=== PATIENT | male | born 1995 | race African-American/Black ===

== ENCOUNTER 2020-09-01 21:29 | Emergency (ER) | payer MEDICAID ==
[~2020-09-01] VITALS: Ht 170.2 cm; Wt 93.0 kg
[2020-09-01 21:33] VITALS: BP 161/100
--- NOTE | 2020-09-01 21:33 | NUR ---
TO BED AMBULATORY
--- NOTE | 2020-09-01 21:40 | NUR ---
24/M BIB SELF COMPLAINING OF ACHING LOWER BACK 8/10 RADIATING TO HIS LEFT AND RIGHT RIB. PT DENIES ANY RECENT TRAUMA OR EXTRENOUS ACTIVITY. PT DENIES ANY FEVER, CHILLS, N/V/D, PAINFUL URINATION. PMH: UNABLE TO REMEMBER NKA
[2020-09-01] MEDS ORDERED: MORPHINE SULFATE 4 MG/ML SYR IVP ONE (23:05)
[2020-09-01] MEDS ORDERED: PANTOPRAZOLE 40 MG INJ VIAL IVP ONE (23:05)
[2020-09-01] MEDS ORDERED: NACL 0.9% 1,000 ML IV ONE (23:05)
[2020-09-01 23:29] LABS: BASOPHILS % (AUTO) 0.3 % (0.0-2.0); EOSINOPHILS # (AUTO) 0.7 K/uL (0-0.4); EOSINOPHILS % (AUTO) 5.2 % (0.0-4.0); HEMATOCRIT 35.7 % (36-52); HEMOGLOBIN 11.3 g/dL (12.0-18.0); LYMPHOCYTES # (AUTO) 2.7 K/uL (2.0-11.5); LYMPHOCYTES % (AUTO) 19.1 % (20.5-51.1); MEAN CORPUSCULAR HEMOGLOBIN 23 pg (27-31); MEAN CORPUSCULAR HGB CONC 32 g/dL (33-37); MEAN CORPUSCULAR VOLUME 71.6 fL (80-94); MONOCYTES # (AUTO) 1.4 K/uL (0.8-1.0); MONOCYTES % (AUTO) 9.9 % (1.7-9.3); NEUTROPHILS # (AUTO) 9.2 K/uL (1.8-7.7); NEUTROPHILS % (AUTO) 65.5 % (42.2-75.2); PLATELET COUNT (AUTO) 278 K/uL (140-450); RED BLOOD CELL COUNT(AUTO) 4.99 MIL/uL (4.20-6.10)
[2020-09-01] MEDS: ONDANSETRON 4 MG/2 ML VIAL IVP ONE (23:37)
--- NOTE | 2020-09-01 23:37 | NUR ---
PT REFUSED ZOFRAN. MEDICATION ALREADY OPENED. MEDICATION WASTED.
[2020-09-01 23:45] LABS: ALBUMIN 3.7 g/dL (3.4-5.0); ANION GAP 10.5 (8-16); CARBON DIOXIDE 28.8 mmol/L (21-32); CREATININE 1.1 mg/dL (0.6-1.3); POTASSIUM 3.3 mmol/L (3.5-5.1); TOTAL BILIRUBIN 0.2 mg/dL (0.0-1.0)
--- NOTE | 2020-09-01 23:47 | NUR ---
PT TAKEN TO CT
--- NOTE | 2020-09-01 23:58 | NUR ---
PT RETURN FROM CT
[2020-09-02] MEDS: ONDANSETRON 4 MG/2 ML VIAL IVP ONE (00:02)
--- NOTE | 2020-09-02 00:43 | NUR ---
URINE SPECIMEN SENT TO [facility] (LAB)
[2020-09-02 00:50] LABS: APPEARANCE,URINE CLEAR (CLEAR); BILIRUBIN,URINE NEGATIVE (NEGATIVE); BLOOD, URINE NEGATIVE (NEGATIVE); COLOR,URINE YELLOW (YELLOW); LEUKOCYTE ESTERASE ,URINE NEGATIVE (NEGATIVE); NITRITE, URINE NEGATIVE (NEGATIVE); PH,URINE 5.5 (5.0-9.0); UGLUCOSE NEGATIVE (NEGATIVE)
[2020-09-02] MEDS ORDERED: FAMO-92 PO (03:36)
[2020-09-02 03:43] VITALS: BP 117/78
== END 2020-09-02 03:43 | disposition home or self-care (01) ==
LOC: MED 21:29
DX: K27.9 Peptic ulcer, site unspecified, unspecified as acute or chronic, without hemorrhage or perforation (principal)
CPT/HCPCS: 36415; 72131; 74176; 80053; 81003; 82150; 83690; 85025; 96361; 96374; 96375; 99285; C9113; J2270; J7030; J2405

== ENCOUNTER 2020-09-04 16:16 | Inpatient (IN) | payer MEDICAID, SELFPAY ==
[~2020-09-04] VITALS: Ht 170.2 cm; Wt 89.8 kg
[~2020-09-04 16:16] MED LIST: FAMO-92 PO
[2020-09-04 16:20] VITALS: BP 137/97
--- NOTE | 2020-09-04 16:22 | NUR ---
c/o bilateral flank pain x few days. states he was seen here a few days ago for abd pain and dx peptic ulcers hx ulcerative colitis
--- NOTE | 2020-09-04 16:22 | NUR ---
Patient ambulated to bed 11. RN evaluating the patient at bedside.
--- NOTE | 2020-09-04 17:10 | NUR ---
Dr. Abarca at the bedside evaluating patient.
[2020-09-04] MEDS ORDERED: MORPHINE SULFATE 4 MG/ML SYR IVP ONE (17:20)
[2020-09-04] MEDS ORDERED: ONDANSETRON 4 MG/2 ML VIAL IVP ONE (17:20)
[2020-09-04] MEDS ORDERED: NACL 0.9% 1,000 ML IV ONE (17:20)
--- NOTE | 2020-09-04 17:47 | NUR ---
patient taken to CT via wheelchair by dish technician
[2020-09-04 17:52] LABS: BASOPHILS # (AUTO) 0.1 K/uL (0.00-0.22); BASOPHILS % (AUTO) 0.5 % (0.0-2.0); EOSINOPHILS # (AUTO) 1.3 K/uL (0-0.4); EOSINOPHILS % (AUTO) 7.6 % (0.0-4.0); HEMATOCRIT 37.3 % (36-52); HEMOGLOBIN 11.5 g/dL (12.0-18.0); LYMPHOCYTES # (AUTO) 2.1 K/uL (2.0-11.5); LYMPHOCYTES % (AUTO) 12.8 % (20.5-51.1); MEAN CORPUSCULAR HEMOGLOBIN 22 pg (27-31); MEAN CORPUSCULAR HGB CONC 31 g/dL (33-37); MEAN CORPUSCULAR VOLUME 71.6 fL (80-94); MONOCYTES # (AUTO) 1.4 K/uL (0.8-1.0); MONOCYTES % (AUTO) 8.8 % (1.7-9.3); NEUTROPHILS # (AUTO) 11.5 K/uL (1.8-7.7); NEUTROPHILS % (AUTO) 70.3 % (42.2-75.2); PLATELET COUNT (AUTO) 272 K/uL (140-450); RED CELL DISTRIBUTION WIDTH 18.1 % (11.6-13.7); WHITE BLOOD COUNT (AUTO) 16.4 K/uL (4.8-10.8)
--- NOTE | 2020-09-04 18:00 | NUR ---
PT RETURNED FROM CT AND PLACED IN BED 11. PT CONNECTED TO IV FLUIDS. WARM BLANKETS PROVIDED. PT PLACED IN POSITION OF COMFORT. LIGHTS DIMMED IN ROOM. CALL LIGHT LEFT WITHIN REACHED AND EDUCATED HOW TO USE. ALL NEEDS ADDRESSED PRIOR TO EXITING ROOM.
[2020-09-04 18:01] LABS: APPEARANCE,URINE CLEAR (CLEAR); BILIRUBIN,URINE 1+ (NEGATIVE); BLOOD, URINE TRACE-I (NEGATIVE); COLOR,URINE YELLOW (YELLOW); LEUKOCYTE ESTERASE ,URINE NEGATIVE (NEGATIVE); NITRITE, URINE NEGATIVE (NEGATIVE); PH,URINE 5.5 (5.0-9.0); UGLUCOSE NEGATIVE (NEGATIVE)
[2020-09-04] MEDS ORDERED: CYCL-711 PO (18:02)
[2020-09-04 18:04] LABS: ALBUMIN 3.9 g/dL (3.4-5.0); ANION GAP 13.8 (8-16); CARBON DIOXIDE 27.9 mmol/L (21-32); CREATININE 1.2 mg/dL (0.6-1.3); POTASSIUM 3.7 mmol/L (3.5-5.1); TOTAL BILIRUBIN 0.5 mg/dL (0.0-1.0)
[2020-09-04 18:10] LABS: BARBITURATE, URINE NEGATIVE ng/ml (NEG <=200); BENZODIAZEPINE, URINE NEGATIVE ng/mL (NEG <=200); CANNABINOID, URINE NEGATIVE ng/mL (NEG <=50); COCAINE, URINE NEGATIVE ng/mL (NEG <=300); OPIATE, URINE POSITIVE ng/mL (NEG <=2000); PHENCYCLIDINE SCREEN,URINE NEGATIVE ng/mL (NEG <=25)
[2020-09-04] MEDS ORDERED: KETOROLAC 30 MG/ML VIAL IVP ONE (18:20)
[2020-09-04] MEDS ORDERED: fentaNYL citrate 0.05 MG/ML VIAL IVP ONE (18:20)
--- NOTE | 2020-09-04 18:30 | NUR ---
Patient refused Toradol and Fentanyl medications; Dr. Abarca notified and aware.
--- NOTE | 2020-09-04 18:45 | NUR ---
Patient refused additional morphine dose; Dr. Abarca notified and aware.
[2020-09-04] MEDS ORDERED: metroNIDAZOLE 500 MG/NS PREMIX 100 ML IV ONE (18:55)
--- NOTE | 2020-09-04 18:58 | NUR ---
Rama specimen collected. Specimen taken to the lab by DOC Diego
--- NOTE | 2020-09-04 19:10 | NUR ---
Report given to LEON Rizzo.
--- NOTE | 2020-09-04 19:25 | NUR ---
Received report from Rosa QUINTERO for continuity of care.
--- NOTE | 2020-09-04 19:53 | NUR ---
RECEIVED REPORT FROM ER NURSE MAXINE. PATIENT AOX4 ON ROOM AIR. IV SITE L HAND 22G PATENT INTACT, INFUSING FLAGYL. AMBULATORY. JR NEGATIVE. DX: COLITIS, SIRS. HX: ULCERATIVE COLITIS. WILL GET THE ROOM READY
--- NOTE | 2020-09-04 19:54 | NUR ---
Patient will be admitted to care of Dr. Alvarenga. Admited to [facility]. Will go to room 105A. Belongings list completed. Report given to Freddy QUINTERO.
[2020-09-04 20:15] VITALS: BP 128/86
--- NOTE | 2020-09-04 20:15 | NUR ---
PATIENT ARRIVED TO UNIT. ON MEDSURG. PATIENT AOX4 ON ROOM AIR. NO S/S RESPIRATORY DISTRESS. LUNGS CLEAR. BOWEL SOUNDS ACTIVE. IV SITE L HAND 22G PATEN INTACT INFUSING FLAGYL. SKIN WARM DRY INTACT. NOTIFIED PATIENT NPO EXCEPT MEDS STATUS. ORIENTED TO ROOM AND HOSPITAL. BED IN LOW POSITION. CALL LIGHT WITHIN REACH. WILL CONTINUE TO MONITOR
[2020-09-04] MEDS: DEXT 5% / NACL 0.9% 500 ML IV SCH (21:40)
--- NOTE | 2020-09-04 21:40 | NUR ---
IVF GIVEN ORDERED. EDUCATION PROVIDED. NO S/S ACUTE DISTRESS NOTED. WILL CONTINUE TO MONITOR
[2020-09-04] MEDS ORDERED: HYDROcodone/APAP 10/325 MG 1 TAB TAB PO PRN (21:45)
[2020-09-04] MEDS ORDERED: MORPHINE SULFATE 2 MG/ML SYR IVP SCH (21:45)
--- NOTE | 2020-09-04 21:57 | NUR ---
PATIENT C/O 710 PAIN TO STOMACH AND BACK. MD AWARE. NEW ORDERS RECEIVED. WILL CARRY OUT
--- NOTE | 2020-09-04 22:08 | NUR ---
MORPHINE GIVEN ORDERED FOR C/O STOMACH AND BACK PAIN. EDUCATION PROVIDED. SAFETY MEASURES IN PLACE. CALL LIGHT WITHIN REACH. WILL CONTINUE TO MONITOR
[2020-09-04] MEDS ORDERED: ZOLPIDEM 5 MG TAB PO PRN (22:50)
[2020-09-04] MEDS ORDERED: HYDROcodone/APAP 7.5/325 MG 1 TAB PO PRN (22:50)
[2020-09-04] MEDS ORDERED: POTASSIUM CHLORIDE 40 MEQ, LIDOCAINE MPF 1% 25 MG in NACL 0.9% 250 ML IV PRN (22:50)
[2020-09-04] MEDS ORDERED: ONDANSETRON 4 MG/2 ML VIAL IM/IVP PRN (22:50)
[2020-09-04] MEDS ORDERED: ACETAMINOPHEN 325 MG TAB PO PRN (22:50)
[2020-09-04] MEDS ORDERED: guaiFENesin DM 200/20 MG-10 ML 10 ML UDC PO PRN (22:50)
[2020-09-04] MEDS ORDERED: DOCUSATE SODIUM 100 MG GELCAP PO PRN (22:50)
[2020-09-04] MEDS ORDERED: methylPREDNISolone SS 125 MG/2 ML VIAL IVP SCH (22:55)
[2020-09-04 23:36] LABS: PROTHROMBIN TIME 11.1 secs (10.8-13.4)
[2020-09-04 23:37] LABS: CHOL/HDL RATIO 4.5 (1-4.5); FREE T4 (FREE THYROXINE) 1.05 ng/dL (0.76-1.46); MAGNESIUM 2.3 mg/dL (1.8-2.4); PHOSPHORUS 3.7 mg/dL (2.5-4.9); THYROID STIMULATING HORMONE 2.02 uIU/mL (0.34-3.74)
[2020-09-05] MEDS ORDERED: metroNIDAZOLE 500 MG/NS PREMIX 100 ML IV ONE (00:05)
--- NOTE | 2020-09-05 00:18 | NUR ---
IV FLAGYL AND SOLUMEDROL GIVEN ORDERED. EDUCATION PROVIDED. NO DISTRESS NOTED. CALL LIGHT WITHIN REACH. WILL CONTINUE TO MONITOR
[2020-09-05] MEDS: DEXT 5% / NACL 0.9% 500 ML IV SCH ×6 (00:49→20:17)
--- NOTE | 2020-09-05 01:52 | NUR ---
PATIENT ASLEEP IN BED. RESPIRATIONS EVEN UNLABORED. NO S/S ACUTE DISTRESS NOTED. BED IN LOW POSITION. CALL LIGHT WITHIN REACH. WILL CONTINUE TO MONITOR
--- NOTE | 2020-09-05 03:48 | NUR ---
PATIENT ASLEEP IN BED. RESPIRATIONS EVEN UNLABORED. NO S/S ACUTE DISTRESS NOTED. BED IN LOW POSITION. CALL LIGHT WITHIN REACH. WILL CONTINUE TO MONITOR
[2020-09-05 04:00] VITALS: BP 118/78
[2020-09-05] MEDS: metroNIDAZOLE 500 MG/NS PREMIX 100 ML IV SCH ×3 (05:31→20:10)
--- NOTE | 2020-09-05 05:33 | NUR ---
SCHEDULED MEDICATION GIVEN. NO DISTRESS NOTED. DENIES DISCOMFORT. DENIES PAIN. CALL LIGHT WITHIN REACH. WILL CONTINUE TO MONITOR
[2020-09-05 06:43] LABS: EOSINOPHILS # (AUTO) 0.1 K/uL (0-0.4); EOSINOPHILS % (AUTO) 0.6 % (0.0-4.0); HEMATOCRIT 34.2 % (36-52); HEMOGLOBIN 10.5 g/dL (12.0-18.0); LYMPHOCYTES # (AUTO) 0.6 K/uL (2.0-11.5); LYMPHOCYTES % (AUTO) 3.8 % (20.5-51.1); MEAN CORPUSCULAR HEMOGLOBIN 22 pg (27-31); MEAN CORPUSCULAR HGB CONC 31 g/dL (33-37); MEAN CORPUSCULAR VOLUME 72.8 fL (80-94); MONOCYTES # (AUTO) 0.2 K/uL (0.8-1.0); MONOCYTES % (AUTO) 1.1 % (1.7-9.3); NEUTROPHILS # (AUTO) 13.9 K/uL (1.8-7.7); NEUTROPHILS % (AUTO) 94.5 % (42.2-75.2); PLATELET COUNT (AUTO) 256 K/uL (140-450); RED CELL DISTRIBUTION WIDTH 18.6 % (11.6-13.7); WHITE BLOOD COUNT (AUTO) 14.7 K/uL (4.8-10.8)
[2020-09-05 07:13] LABS: ANION GAP 14.1 (8-16); POTASSIUM 4.1 mmol/L (3.5-5.1)
--- NOTE | 2020-09-05 07:25 | NUR ---
ENDORSED PATIENT TO DAY RN FOR CONTINUITY OF CARE. PATIENT IS IN STABLE CONDITION
--- NOTE | 2020-09-05 07:30 | NUR ---
RECEIVED BEDSIDE ENDORSEMENT FROM NIGHTSNDFT NURSE FOR CONTINUITY OF CARE.
[2020-09-05 08:00] VITALS: BP 119/66
[2020-09-05] MEDS: PANTOPRAZOLE 40 MG TABEC PO SCH (08:43)
--- NOTE | 2020-09-05 08:49 | NUR ---
ADMINISTERED PRESCRIBED MEDS ORDERED BY MD. PATIENT TOLERATED WELL. MEDICATION EDUCATION PROVIDED. PATIENT VERBALIZED UNDERSTANDING. MD AT BEDSIDE. PATIENT DENIES PAIN AT THE MOMENT. SAFETY MEASURES IN PLACE. WILL CONTINUE TO MONITOR.
--- NOTE | 2020-09-05 08:56 | NUR ---
FNS REFERRAL RECEIVED FOR REFUSAL TO EAT >3 DAYS. PATIENT HAS BEEN SCREENED AND CATEGORIZED HIGH NUTRITION RISK. PATIENT WILL BE SEEN WITHIN 1-2 DAYS OF ADMISSION. 09/05/20-09/06/[address]
--- NOTE | 2020-09-05 09:04 | NUR ---
DC PLANNIN YRS OLD MALE PATIENT WAS ADMITTED FROM HOME WITH A DX OF COLITIS, SIRS. PT HAS A HX OF ULCERATIVE COLITIS AND PEPCID ULCER. CXR SHOWED BIBASAL ATELECTASIS, RAPID COVID TEST NEGATIVE. CT ABD/PELVIS SHOWED DESCENDING COLITIS. BLOOD CULTURE PENDING. STARTED IVF, MORPHINE IVP AND ZOFRAN IV . CONSULTED WITH GI DR SUTTON. DC PLAN TO GO HOME WHEN STABLE. CM TO FOLLOW. Addendum: 09/05/20 at 1255 by Barb Harris RN DC PLANNING: CALLED [place] DELVIN BENITEZ [phone] LEFT A MESSAGE. CM TO FOLLOW.
--- NOTE | 2020-09-05 10:32 | NUR ---
SOCIAL WORK NOTE: Patient's Orientation Unable To Assess Information Provided By GEOFFREY PNEA - SIGNIFICANT OTHER Comments SW WAS UNABLE TO MEET PATIENT AT BEDSIDE. SW COMPLETED ASSESSMENT WITH PATIENT'S SIGNIFICANT OTHER. Auto Technician, Realtionship and Phone Number GEOFFREY PENA SIGNIFICANT OTHER [phone] [facility] Power of Soaking Tank Worker No Does Patient Have a POLST No Identifying Problems No Social Work Triggers Is A Social Work Consult Needed No Mandate Report Filed No Explanation Of Identifying Problems PATIENT IS A 25-YEAR-OLD MALE ADMITTED FOR COLITIS. PATIENT HAS PMHX OF ULCERATIVE COLITIS. PATIENT'S SIGNIFICANT OTHER REPORTED NO HX OF MENTAL HEALTH OR SUBSTANCE ABUSE. Admitted From Home Pre-Admission Level Of Functioning Status Independent/Ambulatory Prior Resources/Services Used In Last 12 Months No Prior Resources Used Prior DME No Prior DME Used Dialysis Comments N/A Living Situation Apartment Lives Alone Patient Had Caregiver No Home Support No Caregiver Issues Financial Issues No Known Financial Issue Referral To The Financial Counselor Needed No Factors/Needs No D/C Needs Identified Pt/Rep Participated In Discharge Plan Yes Patient/Family Agress With Discharge Plan Yes Discharge Plan Comments TENTATIVE DISCHARGE PLAN IS FOR PATIENT TO RETURN HOME. DC Plan Status Initiated
--- NOTE | 2020-09-05 13:14 | NUR ---
09/05/20 RD INITIAL ASSESSMENT COMPLETED PLEASE REFER TO NUTRITION ASSESSMENT UNDER CARE ACTIVITY FOR ESTIMATED NUTRITIONAL NEEDS. 1. CONTINUE NPO MEDICALLY APPROPRIATE 2. GRABIEL PROVIDED NUTRITION EDUCATION FOR ULCERATIVE COLITIS 3. IF/WHEN MEDICALLY STABLE CONSIDER A LOW FIBER/SOFT DIET 4. RD TO FOLLOW-UP 3-5 DAYS, MODERATE RISK SALVATORE PALM RD Addendum: 09/05/20 at [address] 1. CONTINUE NPO MEDICALLY APPROPRIATE 2. GRABIEL PROVIDED NUTRITION EDUCATION FOR ULCERATIVE COLITIS 3. IF/WHEN MEDICALLY STABLE CONSIDER A LOW FIBER/SOFT DIET 4. RECOMMEND MULTIVITAMIN DAILY 5. RD TO FOLLOW-UP 3-5 DAYS, MODERATE RISK SALVATORE PALM RD
[2020-09-05] MEDS: methylPREDNISolone SS 40 MG/ML VIAL IVP SCH ×2 (13:24→20:13)
--- NOTE | 2020-09-05 13:33 | NUR ---
ADMINISTERED PRESCRIBED MEDS PER MD ORDER. PATIENT TOLERATED WELL. MEDICATION EDUCATION PROVIDED. PATIENT VERBALIZED UNDERSTANDING. PATIENT DENIES ANY PAIN/DISCOMFORT. ABLE TO MAKE NEEDS KNOWN. SAFETY MEASURES IN PLACE. WILL CONTINUE TO MONITOR.
--- NOTE | 2020-09-05 14:53 | NUR ---
RECOMMENDATION FOR MULTIVITAMIN ONCE DAILY WAS APPROVED BY DR. ROWLAND. RECEIVED TORB FOR MULTIVITAMIN ONCE DAILY.
--- NOTE | 2020-09-05 15:09 | NUR ---
PATIENT ROUNDING PERFORMED. PATIENT IS SLEEPING IN BED, VISIBLE RISE AND FALL OF CHEST NOTED. RESPIRATIONS EVEN AND UNLABORED. PATIENT DOES NOT SHOW ANY SIGNS OF DISTRESS. SAFETY MEASURES IN PLACE. WILL CONTINUE TO MONITOR.
[2020-09-05 16:00] VITALS: BP 141/73
--- NOTE | 2020-09-05 19:09 | NUR ---
ENDORSED PATIENT TO NIGHTSHIFT NURSE FOR CONTINUITY OF CARE.
--- NOTE | 2020-09-05 19:10 | NUR ---
RECEIVED BEDSIDE ENDORSEMENT FROM AM SHIFT RN. PT IS AAOX4, ON ROOM AIR, DENIES PAIN, AMBULATORY, SAFETY MEASURES IN PLACE, PLAN OF CARE DISCUSSED, CALL LIGHT WITHIN REACH.
[2020-09-05 20:00] VITALS: BP 124/77
--- NOTE | 2020-09-05 20:18 | NUR ---
PT IS AWAKE, USING HIS CELLPHONE, DENIES PAIN, DUE MEDS GIVEN ORDERED, NO A/R NOTED, TOLERATED WELL, CALL LIGHT WITHIN REACH.
[2020-09-06] MEDS: DEXT 5% / NACL 0.9% 500 ML IV SCH ×6 (00:54→20:49)
--- NOTE | 2020-09-06 00:55 | NUR ---
IVF FINISHED, HANGED D5 NS 500 ML AT 125 ML/HR, IV SITE PATENT, KEPT COMFORTABLE, CALL LIGHT WITHIN REACH.
--- NOTE | 2020-09-06 02:00 | NUR ---
MADE ROUNDS, NO S/SX OF ACUTE DISTRESS, CALL LIGHT WITHIN REACH.
[2020-09-06 04:00] VITALS: BP 118/68
[2020-09-06] MEDS: metroNIDAZOLE 500 MG/NS PREMIX 100 ML IV SCH ×3 (04:55→20:22)
[2020-09-06] MEDS: methylPREDNISolone SS 40 MG/ML VIAL IVP SCH ×3 (04:56→20:24)
--- NOTE | 2020-09-06 05:02 | NUR ---
DUE MEDS GIVEN ORDERED, TOLERATED WELL, WILL CONTINUE TO MONITOR, CALL LIGHT WITHIN REACH.
[2020-09-06 06:30] LABS: BASOPHILS % (AUTO) 0.1 % (0.0-2.0); HEMATOCRIT 32.9 % (36-52); HEMOGLOBIN 10.2 g/dL (12.0-18.0); LYMPHOCYTES # (AUTO) 1.2 K/uL (2.0-11.5); LYMPHOCYTES % (AUTO) 7.4 % (20.5-51.1); MEAN CORPUSCULAR HEMOGLOBIN 22 pg (27-31); MEAN CORPUSCULAR HGB CONC 31 g/dL (33-37); MEAN CORPUSCULAR VOLUME 71.6 fL (80-94); MONOCYTES # (AUTO) 1.8 K/uL (0.8-1.0); MONOCYTES % (AUTO) 10.6 % (1.7-9.3); NEUTROPHILS # (AUTO) 13.8 K/uL (1.8-7.7); NEUTROPHILS % (AUTO) 81.9 % (42.2-75.2); PLATELET COUNT (AUTO) 261 K/uL (140-450); RED CELL DISTRIBUTION WIDTH 18.3 % (11.6-13.7); WHITE BLOOD COUNT (AUTO) 16.8 K/uL (4.8-10.8)
[2020-09-06 06:35] LABS: ANION GAP 11.8 (8-16); CARBON DIOXIDE 25.7 mmol/L (21-32); CREATININE 0.8 mg/dL (0.6-1.3); POTASSIUM 3.5 mmol/L (3.5-5.1)
[2020-09-06 07:08] LABS: T4 (THYROXINE) 7.4 ug/dL (4.5-12.0)
--- NOTE | 2020-09-06 07:29 | NUR ---
PT STABLE, BEDSIDE ENDORSEMENT GIVEN TO AM SHIFT RN FOR CONTINUITY OF CARE.
--- NOTE | 2020-09-06 07:33 | NUR ---
RECEIVED PT FROM INSTRUCTIONAL RESOURCE TEACHER NURSECHEO, PT IS ASLEEP LYING ON THE BED WITH SIDE RAILS UP AND CALL LIGHT WITHIN REACH, RESPIRATION IS EVEN AND VISIBLE CHEST RISE, IV LINE NOTED ON THE L;EFT HAND G. 22 WITH IVF D5NS INFUSING AT 125ML/HR, INTACT AND PATENT, PT IS ON RA AND NO SIGN OF DISTRESS NOTED, WILL CONTINUE TO MONITOR PT.
--- NOTE | 2020-09-06 07:35 | NUR ---
RECEIVED PT FROM S3B MULTI SENSOR OPERATOR NURSE, CHERELLE, PT IS AWAKE NAD SEATED ON THE BED WITH SIDE RAILS UP AND CALL LIGHT WITHIN REACH, IV LINE NOTED ON THE RAC G. 20 WITH IVF LACTATED RINGER AT 120ML/HR, PT IS ON RA, PT IS S/P I&D ON THE LEFT KNEE, DRESSING INTACT, NO SIGN OF DISTRESS NOTED AND WILL CONTINUE TO MONITOR PT. Addendum: 09/06/20 at 1003 by Kya Landers RN WRONG NOTES ENTERED FOR THE PT, INTENDED FOR A DIFFERENT PT.
[2020-09-06 08:00] VITALS: BP 139/90
[2020-09-06] MEDS: PANTOPRAZOLE 40 MG TABEC PO SCH (09:18)
[2020-09-06] MEDS: MULTIVITAMIN/MINERALS 1 TAB PO SCH (09:18)
--- NOTE | 2020-09-06 09:18 | NUR ---
PT WAS GIVEN THE SCHEDULED AM MEDICATIONS NOW, TOLERATED AND WILL CONTINUE TO MONITOR PT.
--- NOTE | 2020-09-06 11:15 | NUR ---
PT AMBULATED TO THE BATHROOM AND MADE A BOWEL MOVEMENT, STOOL IS SOFT AND FORMED AND CANNOT BE USED SAMPLE FOR C-DIFF TESTING.
--- NOTE | 2020-09-06 13:56 | NUR ---
PT WAS GIVEN THE SCHEDULED MEDICATION VIA IV PUSH AND IVPB, WILL MONITOR PT.
--- NOTE | 2020-09-06 15:40 | NUR ---
PT IS RESTING AND IS TALKING TO HER GIRLFRIEND OVER THE CP, NO SIGN OF DISTRESS NOTED.
[2020-09-06 16:00] VITALS: BP 128/69
--- NOTE | 2020-09-06 16:00 | NUR ---
STOOL SAMPLE FOR C.DIFF WAS COLLECTED AND SENT TO LAB NOW.
--- NOTE | 2020-09-06 19:10 | NUR ---
ENDORSED PT TO BAG GRADER NURSE FOR CONTINUITY OF CARE.
--- NOTE | 2020-09-06 19:11 | NUR ---
RECEIVED BEDSIDE ENDORSEMENT FROM AM SHIFT RN. PT IS AAOX4, ON ROOM AIR, IVF INFUSING, ON REGULAR DIET, ON C-DIFF CONTACT ISO PRECAUTION, PENDING RESULT, AMBULATORY, SAFETY MEASURES IN PLACE, PLAN OF CARE DISCUSSED, CALL LIGHT WITHIN REACH.
[2020-09-06 20:00] VITALS: BP 132/70
--- NOTE | 2020-09-06 20:30 | NUR ---
PT AWAKE, DUE MEDS GIVEN ORDERED, NO A/R NOTED, TOLERATED WELL, CALL LIGHT WITHIN REACH.
[2020-09-06] MEDS: MORPHINE SULFATE 2 MG/ML SYR IVP PRN (20:49)
--- NOTE | 2020-09-06 22:00 | NUR ---
PT IS RESTING, DENIES PAIN, WILL CONTINUE TO MONITOR.
[2020-09-07] MEDS: DEXT 5% / NACL 0.9% 500 ML IV SCH ×2 (00:54→04:51)
--- NOTE | 2020-09-07 00:57 | NUR ---
PT IS USING HIS CELLPHONE. IVF FINISHED, HANGED A NEW BAG OF D5 NS 500 ML AT 125 ML/HR ORDERED. KEPT WARM AND COMFORTABLE, CALL LIGHT WITHIN REACH.
--- NOTE | 2020-09-07 02:00 | NUR ---
ASLEEP, NOTED CHEST RISE.
[2020-09-07 04:00] VITALS: BP 138/94
[2020-09-07] MEDS: metroNIDAZOLE 500 MG/NS PREMIX 100 ML IV SCH (04:51)
[2020-09-07] MEDS: methylPREDNISolone SS 40 MG/ML VIAL IVP SCH (04:53)
[2020-09-07] MEDS: MORPHINE SULFATE 2 MG/ML SYR IVP PRN (05:03)
--- NOTE | 2020-09-07 05:08 | NUR ---
DUE MEDS GIVEN ORDERED, NO A/R NOTED, CALL LIGHT WITHIN REACH.
[2020-09-07 06:39] LABS: BASOPHILS % (AUTO) 0.1 % (0.0-2.0); HEMATOCRIT 32.4 % (36-52); LYMPHOCYTES # (AUTO) 0.8 K/uL (2.0-11.5); LYMPHOCYTES % (AUTO) 6.6 % (20.5-51.1); MEAN CORPUSCULAR HEMOGLOBIN 22 pg (27-31); MEAN CORPUSCULAR HGB CONC 31 g/dL (33-37); MEAN CORPUSCULAR VOLUME 72.3 fL (80-94); MONOCYTES # (AUTO) 1.4 K/uL (0.8-1.0); MONOCYTES % (AUTO) 11.7 % (1.7-9.3); NEUTROPHILS # (AUTO) 9.9 K/uL (1.8-7.7); NEUTROPHILS % (AUTO) 81.6 % (42.2-75.2); PLATELET COUNT (AUTO) 272 K/uL (140-450); RED BLOOD CELL COUNT(AUTO) 4.47 MIL/uL (4.20-6.10); RED CELL DISTRIBUTION WIDTH 18.4 % (11.6-13.7); WHITE BLOOD COUNT (AUTO) 12.1 K/uL (4.8-10.8)
[2020-09-07 06:47] LABS: ANION GAP 9.9 (8-16); CARBON DIOXIDE 27.8 mmol/L (21-32); CREATININE 0.9 mg/dL (0.6-1.3); POTASSIUM 3.7 mmol/L (3.5-5.1)
--- NOTE | 2020-09-07 07:08 | NUR ---
PT STABLE, ALL NEEDS ATTENDED, NO ACUTE CHANGES OVERNIGHT, KEPT COMFORTABLE, CALL LIGHT WITHIN REACH.
[2020-09-07] MEDS: MULTIVITAMIN/MINERALS 1 TAB PO SCH (09:11)
[2020-09-07] MEDS: PANTOPRAZOLE 40 MG TABEC PO SCH (09:11)
[2020-09-07] MEDS ORDERED: BEN10 PO (11:32)
[2020-09-07] MEDS ORDERED: PRED10TA5 PO (11:32)
[2020-09-07] MEDS ORDERED: ACET-5629 PO (11:33)
--- NOTE | 2020-09-07 13:11 | NUR ---
alert, oriented, denied any abdominal pain, nor discomfort. Tolerated reg diet well, anxious to go home seen by attending, and discharge to home order written home with following instructions 1/ make appointment to see Primary care dr, and GI as soon as he can 2/ take all meds as prescribed, 3/avoid spicy food, if possible. 4/ if symtoms getting worse, go to emergency room patient is discharged to home., and well aware he will product picker his medicine on the way.
== END 2020-09-07 13:15 | disposition home or self-care (01) | DRG 720 ==
LOC: MED 16:16 → MTU 19:25
PROVIDERS: ADMIT Family Medicine; ATTEND Family Medicine
DX: A41.9 Sepsis, unspecified organism (principal); K51.90 Ulcerative colitis, unspecified, without complications; E86.0 Dehydration; D50.9 Iron deficiency anemia, unspecified; E78.5 Hyperlipidemia, unspecified; K27.9 Peptic ulcer, site unspecified, unspecified as acute or chronic, without hemorrhage or perforation; Z20.822 Contact with and (suspected) exposure to COVID-19; Z79.899 Other long term (current) drug therapy
CPT/HCPCS: 36415; 71045; 80048; 80053; 80305; 81003; 82150; 83036; 83605; 83690; 83735; 83880; 84100; 84436; 84439; 84443; 84479; 84484; 85025; 85610; 85730; 87040; 87070; 87081; 96361; 96374; 96375; 99285; J1885; J2270; J2405; J2920; J2930; J3010; J3490; J7030; J7042

== ENCOUNTER 2021-02-28 01:26 | Emergency (ER) | payer MEDICAID, SELFPAY ==
[~2021-02-28] VITALS: Ht 170.2 cm; Wt 84.1 kg
[~2021-02-28 01:26] MED LIST changes: +ACET-5629 PO; +BEN10 PO; +CYCL-711 PO; +PRED10TA5 PO
[2021-02-28 01:44] VITALS: BP 133/84
[2021-02-28] MEDS ORDERED: ONDANSETRON 4 MG/2 ML VIAL IVP ONE (03:05)
[2021-02-28] MEDS ORDERED: NACL 0.9% 1,000 ML IV ONE (03:05)
[2021-02-28] MEDS ORDERED: MORPHINE SULFATE 4 MG/ML SYR IVP ONE ×2 (03:05→08:40)
[2021-02-28 04:07] LABS: HEMATOCRIT 36.3 % (36-52); HEMOGLOBIN 11.2 g/dL (12.0-18.0); MEAN CORPUSCULAR HEMOGLOBIN 22 pg (27-31); MEAN CORPUSCULAR HGB CONC 31 g/dL (33-37); MEAN CORPUSCULAR VOLUME 70.6 fL (80-94); PLATELET COUNT (AUTO) 367 K/uL (140-450); RED BLOOD CELL COUNT(AUTO) 5.14 MIL/uL (4.20-6.10); RED CELL DISTRIBUTION WIDTH 20.4 % (11.6-13.7); WHITE BLOOD COUNT (AUTO) 13.6 K/uL (4.8-10.8)
[2021-02-28 04:25] LABS: ALBUMIN 3.7 g/dL (3.4-5.0); ANION GAP 12.7 (8-16); CARBON DIOXIDE 27.7 mmol/L (21-32); EOSINOPHILS % (MANUAL) 6 % (0-4); LYMPHOCYTES % (MANUAL) 23 % (20-46); MONOCYTES % (MANUAL) 4 % (5-12); POTASSIUM 3.4 mmol/L (3.5-5.1); TOTAL BILIRUBIN 0.2 mg/dL (0.0-1.0)
[2021-02-28] MEDS ORDERED: ONDANSETRON 4 MG/2 ML VIAL ONE (04:26)
[2021-02-28] MEDS ORDERED: MORPHINE SULFATE 2 MG/ML SYR ONE (04:26)
[2021-02-28] MEDS ORDERED: metroNIDAZOLE 500 MG/NS PREMIX 100 ML IV ONE (06:06)
[2021-02-28] MEDS ORDERED: ACETAMINOPHEN 325 MG TAB PO PRN (08:20)
[2021-02-28] MEDS ORDERED: POTASSIUM CHLORIDE 10 MEQ TABER PO PRN (08:20)
[2021-02-28] MEDS ORDERED: ZOLPIDEM 5 MG TAB PO PRN (08:20)
[2021-02-28] MEDS ORDERED: bisacodyL 10 MG SUPP RC PRN (08:20)
[2021-02-28] MEDS ORDERED: NACL 0.9% 1,000 ML IV SCH (08:20)
[2021-02-28] MEDS ORDERED: CYCLOBENZAPRINE 10 MG TAB PO PRN (08:20)
[2021-02-28] MEDS ORDERED: ONDANSETRON 4 MG/2 ML VIAL IM/IVP PRN (08:20)
[2021-02-28] MEDS ORDERED: MAG SULF 2000 MG/WATER PREMIX 50 ML IV PRN (08:20)
[2021-02-28] MEDS ORDERED: oxyCODONE/APAP 5/325 MG 1 TAB TAB PO PRN (08:20)
[2021-02-28] MEDS ORDERED: HYDROcodone/APAP 5/325 MG 1 TAB TAB PO PRN (08:20)
[2021-02-28] MEDS ORDERED: DOCUSATE SODIUM 100 MG GELCAP PO PRN (08:20)
[2021-02-28] MEDS ORDERED: LORazepam 2 MG/ML VIAL IM/IVP PRN (08:20)
[2021-02-28] MEDS ORDERED: METR500T1 PO (08:34)
[2021-02-28] MEDS ORDERED: PRED5TAB7 PO (08:34)
[2021-02-28] MEDS ORDERED: MORPHINE SULFATE 4 MG/ML SYR ONE (08:42)
[2021-02-28] MEDS ORDERED: NON-FORMULARY ITEM (Famotidine* (Pepcid*) 40 MG) PO SCH (09:00)
[2021-02-28] MEDS ORDERED: predniSONE 10 MG TAB PO SCH (09:00)
[2021-02-28] MEDS ORDERED: PANTOPRAZOLE 40 MG TABEC PO SCH (09:00)
[2021-02-28] MEDS ORDERED: DICYCLOMINE 10 MG CAP PO SCH (09:00)
[2021-02-28 09:09] VITALS: BP 106/76
[2021-02-28] MEDS ORDERED: metroNIDAZOLE 500 MG TAB PO SCH (13:00)
== END 2021-02-28 09:09 | disposition home or self-care (01) ==
LOC: MED 01:26
DX: K51.90 Ulcerative colitis, unspecified, without complications (principal); A41.9 Sepsis, unspecified organism; E87.6 Hypokalemia; E86.0 Dehydration; K21.9 Gastro-esophageal reflux disease without esophagitis; M62.838 Other muscle spasm; Z20.822 Contact with and (suspected) exposure to COVID-19; Z79.899 Other long term (current) drug therapy; Z79.891 Long term (current) use of opiate analgesic
CPT/HCPCS: 36415; 80053; 82150; 83690; 85025; 87040; 87426; 96361; 96374; 96375; 96376; 99284; J2270; J2405; J3490

== ENCOUNTER 2021-05-01 21:10 | Emergency (ER) | payer MEDICAID, SELFPAY ==
[~2021-05-01] VITALS: Ht 170.2 cm; Wt 86.6 kg
[~2021-05-01 21:10] MED LIST changes: +METR500T1 PO; +PRED5TAB7 PO
[2021-05-01 21:16] VITALS: BP 131/80
--- NOTE | 2021-05-01 21:22 | NUR ---
pt ambulated to bed 07
[2021-05-01 22:47] LABS: HEMATOCRIT 30.9 % (36-52); HEMOGLOBIN 9.8 g/dL (12.0-18.0); MEAN CORPUSCULAR HEMOGLOBIN 22 pg (27-31); MEAN CORPUSCULAR HGB CONC 32 g/dL (33-37); MEAN CORPUSCULAR VOLUME 67.8 fL (80-94); PLATELET COUNT (AUTO) 281 K/uL (140-450); RED BLOOD CELL COUNT(AUTO) 4.56 MIL/uL (4.20-6.10); RED CELL DISTRIBUTION WIDTH 18.2 % (11.6-13.7); WHITE BLOOD COUNT (AUTO) 10.5 K/uL (4.8-10.8)
[2021-05-01 22:50] LABS: ALBUMIN 3.5 g/dL (3.4-5.0); ANION GAP 12.7 (8-16); CARBON DIOXIDE 28.6 mmol/L (21-32); CREATININE 0.9 mg/dL (0.6-1.3); POTASSIUM 3.3 mmol/L (3.5-5.1); TOTAL BILIRUBIN 0.2 mg/dL (0.0-1.0)
[2021-05-01 22:59] LABS: EOSINOPHILS % (MANUAL) 17 % (0-4); LYMPHOCYTES % (MANUAL) 24 % (20-46); MONOCYTES % (MANUAL) 6 % (5-12)
--- NOTE | 2021-05-01 23:00 | NUR ---
25 YO M BIB SELF FOR ABD PAIN AND BLOOD IN STOOL. PT WAS DIAGNOSED WITH ULCERATIVE COLITIS 10 YRS AGO . PT SAYS HES BEEN HACING FLARE UPS FOR 3-4 MONTHS . PT BELIEVES ITS DUE TO TAKING PREDNISONE FOR TOO LONG. PT STATES THAT WHEN HE EATS IN 15-20 MINUTES HE GETS SEVERE ABD PAIN AND WILL NEED TO GO DIARRHEA RIGHT AWAY. PT STATES 5/10 PAIN. PT HAS SOME EPIGASTRIC PAIN. PT DENIES F/V/ SOB. NO COVID LIKE SYMPTOMS RX: PREDNISONE PEPCID PERCOCET
[2021-05-01] MEDS ORDERED: PRED20TA5 PO (23:23)
[2021-05-01] MEDS ORDERED: FERR325E14 PO (23:23)
[2021-05-01] MEDS ORDERED: predniSONE 20 MG TAB PO ONE (23:25)
[2021-05-01] MEDS ORDERED: ACETAMINOPHEN EXTRA STRENGTH 500 MG TAB ONE (23:35)
[2021-05-01] MEDS ORDERED: ACET-2619 PO (23:46)
[2021-05-01] MEDS ORDERED: ACETAMINOPHEN EXTRA STRENGTH 500 MG TAB PO ONE (23:50)
[2021-05-01 23:58] VITALS: BP 129/80
--- NOTE | 2021-05-01 23:58 | NUR ---
Patient discharged with v/s stable. Written and verbal after care instructions given and explained. Patient alert, oriented and verbalized understanding of instructions. Ambulatory with steady gait. All questions addressed prior to discharge. ID band removed. Patient advised to follow up with PMD. Rx of TYLENOL, FERROUS SULFATE, PREDNISONE given. Opportunity to ask questions provided and answered.
== END 2021-05-01 23:58 | disposition home or self-care (01) ==
LOC: MED 21:10
DX: D64.9 Anemia, unspecified (principal); K51.90 Ulcerative colitis, unspecified, without complications; K62.5 Hemorrhage of anus and rectum
CPT/HCPCS: 36415; 80053; 85025; 86886; 86900; 86901; 99283; J7512

== ENCOUNTER 2021-05-13 19:40 | Emergency (ER) | payer MEDICAID ==
[~2021-05-13] VITALS: Ht 170.2 cm; Wt 84.9 kg
[~2021-05-13 19:40] MED LIST changes: +ACET-2619 PO; +FERR325E14 PO; +PRED20TA5 PO
[2021-05-13 20:49] VITALS: BP 136/83
--- NOTE | 2021-05-13 20:50 | NUR ---
25 YO M BIB SELF WITH C/C OF BLOOD IN STOOL [id number]. PT STATES HE WAS DIAGNOSED WITH ULCERATIVE COLITIS SINCE THEN MEDICATION HAS NOT WORKED AND BLOOD IN STOOL CONTINUES. REPORTS 11/15 BILAT ABD SIDE PAIN. WAS PRESCRIBED PANADOL, NONCOMPLIANT. DENIES TAKING MEDICATION. HX:COLITIS NKA
--- NOTE | 2021-05-13 20:55 | NUR ---
PT IN LOBBY
[2021-05-13 22:15] LABS: BASOPHILS % (AUTO) 0.2 % (0.0-2.0); EOSINOPHILS # (AUTO) 1.4 K/uL (0-0.4); EOSINOPHILS % (AUTO) 10.8 % (0.0-4.0); HEMATOCRIT 32.9 % (36-52); HEMOGLOBIN 10.2 g/dL (12.0-18.0); LYMPHOCYTES # (AUTO) 2.3 K/uL (2.0-11.5); LYMPHOCYTES % (AUTO) 18.5 % (20.5-51.1); MEAN CORPUSCULAR HEMOGLOBIN 21 pg (27-31); MEAN CORPUSCULAR HGB CONC 31 g/dL (33-37); MEAN CORPUSCULAR VOLUME 66.6 fL (80-94); MONOCYTES % (AUTO) 8.1 % (1.7-9.3); NEUTROPHILS # (AUTO) 7.9 K/uL (1.8-7.7); NEUTROPHILS % (AUTO) 62.4 % (42.2-75.2); PLATELET COUNT (AUTO) 358 K/uL (140-450); RED BLOOD CELL COUNT(AUTO) 4.94 MIL/uL (4.20-6.10); RED CELL DISTRIBUTION WIDTH 18.3 % (11.6-13.7); WHITE BLOOD COUNT (AUTO) 12.7 K/uL (4.8-10.8)
[2021-05-13 22:37] LABS: ALBUMIN 3.9 g/dL (3.4-5.0); ANION GAP 10.4 (8-16); CARBON DIOXIDE 29.9 mmol/L (21-32); CREATININE 0.9 mg/dL (0.6-1.3); POTASSIUM 3.3 mmol/L (3.5-5.1); TOTAL BILIRUBIN 0.3 mg/dL (0.0-1.0)
[2021-05-13] MEDS: KETOROLAC 30 MG/ML VIAL IM ONE (23:45)
[2021-05-13] MEDS: HYDROcodone/APAP 5/325 MG 1 TAB TAB PO ONE (23:46)
[2021-05-14] MEDS ORDERED: PRED20TA6 PO (02:47)
[2021-05-14] MEDS ORDERED: AMOX-1000 PO (02:47)
[2021-05-14] MEDS ORDERED: OXYC-304 PO (02:47)
[2021-05-14 02:57] VITALS: BP 132/72
--- NOTE | 2021-05-14 02:57 | NUR ---
Patient discharged with v/s stable. Written and verbal after care instructions given and explained. Patient alert, oriented and verbalized understanding of instructions. Ambulatory with steady gait. All questions addressed prior to discharge. ID band removed. Patient advised to follow up with PMD. Rx of AUGMENTIN, OXYCODONE-ACETAMINOPHEN, PREDISONE given. Patient educated on indication of medication including possible reaction and side effects. Opportunity to ask questions provided and answered.
== END 2021-05-14 02:57 | disposition home or self-care (01) ==
LOC: MED 19:40
DX: R19.7 Diarrhea, unspecified (principal); R10.9 Unspecified abdominal pain
CPT/HCPCS: 36415; 74177; 80053; 83690; 85025; 96372; 99285; J1885; Q9967

== ENCOUNTER 2021-08-15 03:16 | Emergency (ER) | payer MEDICAID ==
[~2021-08-15] VITALS: Ht 170.2 cm; Wt 77.6 kg
[~2021-08-15 03:16] MED LIST changes: +AMOX-1000 PO; -FERR325E14 PO; +OXYC-304 PO; +PRED20TA6 PO
[2021-08-15 03:24] VITALS: BP 124/74
--- NOTE | 2021-08-15 03:29 | NUR ---
pt sent to lobby, waiting for bed.
[2021-08-15] MEDS ORDERED: ONDANSETRON 4 MG ODT PO ONE (03:50)
[2021-08-15] MEDS ORDERED: DICYCLOMINE HCL LIQUID 20 MG, ALUMINUM HYD/MAG/SIMETHICONE 30 ML, LIDOCAINE VISCOUS 2% ... PO ONE ×3 (03:50)
[2021-08-15] MEDS ORDERED: PANTOPRAZOLE 40 MG TABEC PO ONE (03:50)
[2021-08-15] MEDS ORDERED: ALUMINUM HYD/MAG/SIMETHICONE 30 ML UDC ONE (03:53)
[2021-08-15] MEDS ORDERED: DICYCLOMINE HCL LIQUID 10 MG/5 ML UDC ONE (03:53)
--- NOTE | 2021-08-15 04:00 | NUR ---
PT TAKEN TO ER BED 07
--- NOTE | 2021-08-15 04:15 | NUR ---
unable to draw labs. primary nurse made aware. called lab, stated jace is on the floor.
--- NOTE | 2021-08-15 04:44 | NUR ---
25 Y/O MALE BIBS, C/O PAIN FROM ULCERATIVE COLITIS X1 DAY. PATIENT PRESENTS TO ED WITH BILATERAL FLANK PAIN. PT STATES HE VOMITED ONCE (NO BLOOD)AND IS COMPLAINING OF BURNING PAIN. DENIES N/V/D; SKIN IS PINK/WARM/DRY; AAOX4 WITH EVEN AND STEADY GAIT; LUNGS CLEAR BL; HR EVEN AND REGULAR; PT DENIES ANY FEVER, CP, SOB, OR COUGH AT THIS TIME; VSS; PATIENT POSITIONED FOR COMFORT; HOB ELEVATED; BEDRAILS UP X1; BED DOWN. ER MD MADE AWARE OF PT STATUS. HX: ULCERATIVE COLITIS NKA MED: MESALAMINE, ACETAMINOPHEN
--- NOTE | 2021-08-15 05:35 | NUR ---
blood sample obtained and walked to lab
[2021-08-15 06:15] LABS: EOSINOPHILS # (AUTO) 0.5 K/uL (0-0.4); MEAN CORPUSCULAR HEMOGLOBIN 20 pg (27-31); MONOCYTES # (AUTO) 0.8 K/uL (0.8-1.0); PLATELET COUNT (AUTO) 225 K/uL (140-450); WHITE BLOOD COUNT (AUTO) 8.6 K/uL (4.8-10.8)
[2021-08-15 06:38] LABS: ANION GAP 11.6 (8-16); CARBON DIOXIDE 28.5 mmol/L (21-32); CREATININE 0.9 mg/dL (0.6-1.3); POTASSIUM 3.1 mmol/L (3.5-5.1); TOTAL BILIRUBIN 0.3 mg/dL (0.0-1.0)
[2021-08-15 06:40] LABS: BASOPHILS # (AUTO) 0.1 K/uL (0.00-0.22); BASOPHILS % (AUTO) 0.7 % (0.0-2.0); HEMATOCRIT 31.8 % (36-52); HEMOGLOBIN 9.7 g/dL (12.0-18.0); LYMPHOCYTES # (AUTO) 2.2 K/uL (2.0-11.5); LYMPHOCYTES % (AUTO) 25.5 % (20.5-51.1); MEAN CORPUSCULAR HGB CONC 31 g/dL (33-37); MEAN CORPUSCULAR VOLUME 65.8 fL (80-94); MONOCYTES % (AUTO) 9.7 % (1.7-9.3); NEUTROPHILS % (AUTO) 58.1 % (42.2-75.2); RED BLOOD CELL COUNT(AUTO) 4.83 MIL/uL (4.20-6.10); RED CELL DISTRIBUTION WIDTH 19.6 % (11.6-13.7)
[2021-08-15 06:46] VITALS: BP 119/74
[2021-08-15] MEDS ORDERED: POTASSIUM CHLORIDE 10 MEQ TABER PO ONE (07:10)
--- NOTE | 2021-08-15 07:10 | NUR ---
Dr. Jesscia is evaluating patient at bedside
--- NOTE | 2021-08-15 07:13 | NUR ---
Report and continuation of care received from LEON Jacobsen.
--- NOTE | 2021-08-15 07:13 | NUR ---
REPORT GIVEN TO LEON MARTINEZ.
--- NOTE | 2021-08-15 07:35 | NUR ---
Dr. Jessica is reevaluating patient at bedside
[2021-08-15] MEDS ORDERED: ACET-5636 PO (07:38)
[2021-08-15] MEDS ORDERED: ONDA-188 SL (07:38)
[2021-08-15] MEDS ORDERED: ALUM355S59 PO (07:38)
--- NOTE | 2021-08-15 07:40 | NUR ---
Patient discharged with v/s stable. Written and verbal after care instructions given and explained for Hypokalemia, Abdominal Pain, Ulcerative Colitis. Patient alert, oriented and verbalized understanding of instructions. Ambulatory with steady gait. All questions addressed prior to discharge. ID band removed. Patient advised to follow up with PMD. Rx of Percocet 10-325, Maalox Advaned Suspension, Zofran ODT. given. Patient educated on indication of medication including possible reaction and side effects. Opportunity to ask questions provided and answered.
== END 2021-08-15 07:40 | disposition home or self-care (01) ==
LOC: MED 03:16
DX: K51.90 Ulcerative colitis, unspecified, without complications (principal); Z79.899 Other long term (current) drug therapy
CPT/HCPCS: 36415; 80053; 83690; 85025; 99284; Q0162

== ENCOUNTER 2021-10-05 21:14 | Emergency (ER) | payer MEDICAID ==
[~2021-10-05] VITALS: Ht 172.7 cm; Wt 81.2 kg
[~2021-10-05 21:14] MED LIST changes: +ACET-5636 PO; +ALUM355S59 PO; +ONDA-188 SL
[2021-10-05 22:06] VITALS: BP 123/76
[2021-10-05] MEDS ORDERED: NACL 0.9% 1,000 ML IV ONE (23:45)
[2021-10-05] MEDS ORDERED: metroNIDAZOLE 500 MG/NS PREMIX 100 ML IV ONE (23:45)
[2021-10-05] MEDS ORDERED: methylPREDNISolone SS 125 MG in WATER STERILE 2 ML IV ONE (23:45)
[2021-10-06 00:20] LABS: BASOPHILS # (AUTO) 0.1 K/uL (0.00-0.22); BASOPHILS % (AUTO) 0.6 % (0.0-2.0); EOSINOPHILS % (AUTO) 8.9 % (0.0-4.0); HEMATOCRIT 32.2 % (36-52); HEMOGLOBIN 9.5 g/dL (12.0-18.0); LYMPHOCYTES # (AUTO) 2.3 K/uL (2.0-11.5); LYMPHOCYTES % (AUTO) 20.3 % (20.5-51.1); MEAN CORPUSCULAR HEMOGLOBIN 19 pg (27-31); MEAN CORPUSCULAR HGB CONC 30 g/dL (33-37); MEAN CORPUSCULAR VOLUME 64.9 fL (80-94); MONOCYTES # (AUTO) 0.9 K/uL (0.8-1.0); NEUTROPHILS # (AUTO) 7.2 K/uL (1.8-7.7); NEUTROPHILS % (AUTO) 62.2 % (42.2-75.2); PLATELET COUNT (AUTO) 233 K/uL (140-450); RED BLOOD CELL COUNT(AUTO) 4.96 MIL/uL (4.20-6.10); RED CELL DISTRIBUTION WIDTH 19.7 % (11.6-13.7); WHITE BLOOD COUNT (AUTO) 11.5 K/uL (4.8-10.8)
[2021-10-06 00:36] LABS: ALBUMIN 4.1 g/dL (3.4-5.0); ANION GAP 12.1 (8-16); CARBON DIOXIDE 28.4 mmol/L (21-32); CREATININE 0.9 mg/dL (0.6-1.3); POTASSIUM 3.5 mmol/L (3.5-5.1); TOTAL BILIRUBIN 0.2 mg/dL (0.0-1.0)
[2021-10-06] MEDS ORDERED: methylPREDNISolone SS 125 MG/2 ML VIAL ONE (02:13)
--- NOTE | 2021-10-06 03:00 | NUR ---
26 YO M BIB SELF FOR ABD PAIN FOR 3-4 DAYS. PT HAS HX OF ULCERATIVE COLITIS. PT COMPLAINS OF PAIN 10/. PT DENIES FEVER . DENIES VOMITING. PT STATES NAUSEA AND DIARRHEA, A&O X4. AMBULATORY . VSS .
--- NOTE | 2021-10-06 03:23 | NUR ---
PT STATES BLOOD IN STOOL
[2021-10-06] MEDS ORDERED: METR-435 PO (04:13)
[2021-10-06] MEDS ORDERED: KETOROLAC 30 MG/ML VIAL IVP ONE (04:20)
[2021-10-06] MEDS ORDERED: KETOROLAC 30 MG/ML VIAL ONE (04:21)
[2021-10-06 04:37] VITALS: BP 121/76
--- NOTE | 2021-10-06 04:37 | NUR ---
Patient discharged with v/s stable. Written and verbal after care instructions given and explained. Patient alert, oriented and verbalized understanding of instructions. Ambulatory with steady gait. All questions addressed prior to discharge. ID band removed. Patient advised to follow up with PMD. Rx of METRONIDAZOLE given. Opportunity to ask questions provided and answered.
--- NOTE | 2021-10-06 05:59 | NUR ---
The patient's care was reviewed and supervised by Jeannine Cavazos RN.
== END 2021-10-06 04:37 | disposition home or self-care (01) ==
LOC: MED 21:14
DX: K51.90 Ulcerative colitis, unspecified, without complications (principal); R19.7 Diarrhea, unspecified; Z79.899 Other long term (current) drug therapy
CPT/HCPCS: 36415; 80053; 85025; 87040; 96365; 96375; 99284; J1885; J2930; J3490; J7030

== ENCOUNTER 2021-12-09 16:13 | Emergency (ER) | payer MEDICAID ==
[~2021-12-09] VITALS: Ht 172.7 cm; Wt 86.2 kg
[~2021-12-09 16:13] MED LIST changes: +METR-435 PO
[2021-12-09 16:25] VITALS: BP 158/87
--- NOTE | 2021-12-09 16:36 | NUR ---
Pt ambulated to bed 12 with steady/even gait.
--- NOTE | 2021-12-09 16:50 | NUR ---
26 y/o M BIB self from home c/o abdominal pain, ulcerative colitis flare up starting this morning after completing meal. Patient A&Ox4, ambulatory, states 9/10, sharp/throbbing/aching, non-radiating pain across upper abdomen and epigastric region. Abd tender to palpation. Patient reports nausea without vomitting, and states diarrhea. Last BM: yesterday. Pt states on day 12/12 of treatment and pain has worsen from medication tapering. Denies fever, chills, chest pain, SOB, dizziness. Bed locked in lowest position, side rails x 1. No upcoming GI appointments. PMH/Sx/Meds: ulcerative colitis - prednisone NKDA
[2021-12-09] MEDS ORDERED: MORPHINE SULFATE 4 MG/ML SYR IVP ONE (17:35)
[2021-12-09] MEDS ORDERED: KETOROLAC 30 MG/ML VIAL IVP ONE (17:35)
[2021-12-09] MEDS ORDERED: NACL 0.9% 1,000 ML IV ONE (17:35)
--- NOTE | 2021-12-09 17:56 | NUR ---
Lab at bedside
[2021-12-09 18:00] LABS: BASOPHILS # (AUTO) 0.1 K/uL (0.00-0.22); BASOPHILS % (AUTO) 0.7 % (0.0-2.0); EOSINOPHILS # (AUTO) 0.1 K/uL (0-0.4); EOSINOPHILS % (AUTO) 0.5 % (0.0-4.0); HEMOGLOBIN 9.3 g/dL (12.0-18.0); LYMPHOCYTES # (AUTO) 3.2 K/uL (2.0-11.5); LYMPHOCYTES % (AUTO) 23.1 % (20.5-51.1); MEAN CORPUSCULAR HEMOGLOBIN 19 pg (27-31); MEAN CORPUSCULAR HGB CONC 30 g/dL (33-37); MONOCYTES # (AUTO) 1.2 K/uL (0.8-1.0); MONOCYTES % (AUTO) 8.3 % (1.7-9.3); NEUTROPHILS # (AUTO) 9.4 K/uL (1.8-7.7); NEUTROPHILS % (AUTO) 67.4 % (42.2-75.2); PLATELET COUNT (AUTO) 289 K/uL (140-450); RED BLOOD CELL COUNT(AUTO) 4.85 MIL/uL (4.20-6.10); RED CELL DISTRIBUTION WIDTH 19.8 % (11.6-13.7); WHITE BLOOD COUNT (AUTO) 13.9 K/uL (4.8-10.8)
[2021-12-09 18:24] LABS: ALBUMIN 3.7 g/dL (3.4-5.0); ANION GAP 13.3 (8-16); CARBON DIOXIDE 29.1 mmol/L (21-32); POTASSIUM 3.4 mmol/L (3.5-5.1); TOTAL BILIRUBIN 0.4 mg/dL (0.0-1.0)
[2021-12-09] MEDS ORDERED: ACET-5636 PO (18:48)
[2021-12-09] MEDS ORDERED: PRED20TA5 PO (18:48)
[2021-12-09 19:20] VITALS: BP 142/82
--- NOTE | 2021-12-09 19:20 | NUR ---
IV removed, catheter intact and site benign. Applied folded 4x4 gauze and tape to stop bleeding.
--- NOTE | 2021-12-09 19:25 | NUR ---
Patient discharged with v/s stable. Written and verbal after care instructions given and explained. Patient alert, oriented and verbalized understanding of instructions. Ambulatory with steady gait. All questions addressed prior to discharge. ID band removed. Patient advised to follow up with PMD. Rx of Percocet 10-325mg, Deltasone given. Patient educated on indication of medication including possible reaction and side effects. Opportunity to ask questions provided and answered.
== END 2021-12-09 19:25 | disposition home or self-care (01) ==
LOC: MED 16:13
DX: K51.90 Ulcerative colitis, unspecified, without complications (principal)
CPT/HCPCS: 36415; 80053; 83605; 85025; 87040; 96361; 96374; 96375; 99284; J1885; J2270; J7030

== ENCOUNTER 2021-12-22 18:40 | Emergency (ER) | payer MEDICAID ==
[~2021-12-22] VITALS: Ht 172.7 cm; Wt 83.5 kg
[2021-12-22 19:25] VITALS: BP 124/87
--- NOTE | 2021-12-22 19:28 | NUR ---
TO LOBBY A/W BED AMBULATORY
[2021-12-22 20:06] LABS: BASOPHILS # (AUTO) 0.1 K/uL (0.00-0.22); BASOPHILS % (AUTO) 0.4 % (0.0-2.0); EOSINOPHILS # (AUTO) 0.2 K/uL (0-0.4); EOSINOPHILS % (AUTO) 1.6 % (0.0-4.0); HEMATOCRIT 33.9 % (36-52); HEMOGLOBIN 10.2 g/dL (12.0-18.0); LYMPHOCYTES # (AUTO) 1.7 K/uL (2.0-11.5); LYMPHOCYTES % (AUTO) 11.1 % (20.5-51.1); MEAN CORPUSCULAR HEMOGLOBIN 20 pg (27-31); MEAN CORPUSCULAR HGB CONC 30 g/dL (33-37); MEAN CORPUSCULAR VOLUME 66.6 fL (80-94); MONOCYTES # (AUTO) 1.5 K/uL (0.8-1.0); MONOCYTES % (AUTO) 9.6 % (1.7-9.3); NEUTROPHILS # (AUTO) 11.9 K/uL (1.8-7.7); NEUTROPHILS % (AUTO) 77.3 % (42.2-75.2); PLATELET COUNT (AUTO) 412 K/uL (140-450); RED BLOOD CELL COUNT(AUTO) 5.08 MIL/uL (4.20-6.10); RED CELL DISTRIBUTION WIDTH 21.2 % (11.6-13.7); WHITE BLOOD COUNT (AUTO) 15.4 K/uL (4.8-10.8)
[2021-12-22 20:22] LABS: ALBUMIN 3.7 g/dL (3.4-5.0); ANION GAP 13.7 (8-16); CARBON DIOXIDE 25.5 mmol/L (21-32); POTASSIUM 3.2 mmol/L (3.5-5.1); TOTAL BILIRUBIN 0.3 mg/dL (0.0-1.0)
--- NOTE | 2021-12-22 20:31 | NUR ---
PT TO BED #2 AMBULATORY
--- NOTE | 2021-12-22 20:49 | NUR ---
ermd at bedside examining pt
--- NOTE | 2021-12-22 20:52 | NUR ---
26 y/o male bibs from home, c/o abd pain raiating to chest x2 days. pt complains of burning pain. denies n/v/d, fever, cough, or sob. a/ox4; unlabored breathing, speaking in full sentences; ambulatory w/o assistance. skin is pink undertone/warm/dry. recent diarrhea yesterday with some blood, no complaint today. recent admit in [facility], d/c on 20 of december. hx: ulcerative colitis
[2021-12-22] MEDS ORDERED: MORPHINE SULFATE 4 MG/ML SYR IM ONE (21:15)
[2021-12-22] MEDS ORDERED: FERR325E14 PO (22:05)
[2021-12-22] MEDS ORDERED: METF-1243 PO (22:05)
[2021-12-22] MEDS ORDERED: HYOS-83 PO (22:05)
[2021-12-23] MEDS ORDERED: MAGN400S60 PO (01:19)
[2021-12-23 01:28] VITALS: BP 124/80
--- NOTE | 2021-12-23 01:30 | NUR ---
Patient discharged with v/s stable. Written and verbal after care instructions given and explained. Patient alert, oriented and verbalized understanding of instructions. Ambulatory with steady gait. All questions addressed prior to discharge. ID band removed. Patient advised to follow up with PMD. Rx of FERROUS SULFATE, MILK OF MAGNESIA,AND HYOSCAMINE SULFATE given. Patient educated on indication of medication including possible reaction and side effects. Opportunity to ask questions provided and answered. VSS, A/OX4, UNLABORED BREATHING, AMBULATORY, AND CALM DEMEANOR.
== END 2021-12-23 01:30 | disposition home or self-care (01) ==
LOC: MED 18:40
DX: R10.13 Epigastric pain (principal)
CPT/HCPCS: 36415; 74022; 80053; 81002; 83690; 85025; 93005; 96374; 99285; J2270

== ENCOUNTER 2022-01-09 01:50 | Emergency (ER) | payer MEDICAID ==
[~2022-01-09] VITALS: Ht 172.7 cm; Wt 84.8 kg
[2022-01-09 01:50] VITALS: BP 126/77
[~2022-01-09 01:50] MED LIST changes: +FERR325E14 PO; +HYOS-83 PO; +MAGN400S60 PO; +METF-1243 PO
--- NOTE | 2022-01-09 01:50 | NUR ---
to bed ambulatory
[2022-01-09] MEDS ORDERED: ALUMINUM HYD/MAG/SIMETHICONE 30 ML, DICYCLOMINE HCL LIQUID 20 MG, LIDOCAINE VISCOUS 2% ... PO ONE ×3 (02:20)
[2022-01-09] MEDS ORDERED: AMOX-999 PO ×2 (02:24→02:48)
[2022-01-09] MEDS ORDERED: DICYCLOMINE HCL LIQUID 10 MG/5 ML UDC ONE (02:25)
[2022-01-09] MEDS ORDERED: ALUMINUM HYD/MAG/SIMETHICONE 30 ML UDC ONE (02:25)
[2022-01-09 02:48] VITALS: BP 126/77
== END 2022-01-09 02:48 | disposition home or self-care (01) ==
LOC: MED 01:50
DX: R10.13 Epigastric pain (principal); R11.10 Vomiting, unspecified; Z79.899 Other long term (current) drug therapy
CPT/HCPCS: 99283

== ENCOUNTER 2022-01-29 01:10 | Emergency (ER) | payer MEDICAID ==
[~2022-01-29] VITALS: Ht 172.7 cm; Wt 86.6 kg
[~2022-01-29 01:10] MED LIST changes: +AMOX-999 PO
[2022-01-29 01:14] VITALS: BP 119/78
--- NOTE | 2022-01-29 01:19 | NUR ---
pt to lobby to a/w evaluation
--- NOTE | 2022-01-29 02:55 | NUR ---
PT AMBUALTED TO BED #6
--- NOTE | 2022-01-29 03:45 | NUR ---
26/M BIB SELF C/C ANXIETY ATTACK [id number]. PER SONNY HE HAS BEEN FEELING ANXIOUS AND WENT TO SEE NEW PCP WAS PRESCRIBED VISTARIL BUT NO RELIEF. SONNY HAS APPT ON Feb FOR A FOLLOW UP. SONNY STATED HE USED TO GET PRESCRIBED LORAZEPAM WHICH HELPED. PMHX ANXIETY, ULCERATIVE COLITIS RX VISTARIL NKA
--- NOTE | 2022-01-29 04:19 | NUR ---
Dr. Cotter examining patient.
[2022-01-29] MEDS ORDERED: LORA-476 PO ×2 (04:27→05:50)
--- NOTE | 2022-01-29 04:30 | NUR ---
Chart checked and completed.
--- NOTE | 2022-01-29 04:30 | NUR ---
Patient discharged with v/s stable. Written and verbal after care instructions given ANXIETY and explained. Patient alert, oriented and verbalized understanding of instructions. Ambulatory with steady gait. All questions addressed prior to discharge. ID band removed. Patient advised to follow up with PMD. Rx of ATIVAN given.
[2022-01-29 04:31] VITALS: BP 114/82
== END 2022-01-29 04:30 | disposition home or self-care (01) ==
LOC: MED 01:10
DX: F41.9 Anxiety disorder, unspecified (principal); R00.2 Palpitations; R06.02 Shortness of breath; Z79.899 Other long term (current) drug therapy
CPT/HCPCS: 99283

== ENCOUNTER 2022-04-04 07:55 | Emergency (ER) | payer MEDICAID ==
[~2022-04-04] VITALS: Ht 172.7 cm; Wt 86.7 kg
[~2022-04-04 07:55] MED LIST changes: +LORA-476 PO
[2022-04-04 08:08] VITALS: BP 129/84
--- NOTE | 2022-04-04 08:15 | NUR ---
PT AMB TO BED 8.
--- NOTE | 2022-04-04 08:55 | NUR ---
Dr. Best evaluating patient at bedside.
[2022-04-04] MEDS ORDERED: ALUMINUM HYD/MAG/SIMETHICONE 30 ML UDC PO ONE (09:00)
[2022-04-04] MEDS ORDERED: FAMOTIDINE 20 MG TAB PO ONE (09:00)
[2022-04-04] MEDS ORDERED: MORPHINE SULFATE 4 MG/ML SYR IM ONE (09:00)
[2022-04-04] MEDS ORDERED: ONDANSETRON 4 MG ODT PO ONE (09:00)
--- NOTE | 2022-04-04 09:05 | NUR ---
26 y/o male bib self with c/o epigastric pain x 1 week. Patient also has loose stools. Per patient, no blood in stool. Patient was prescribed Cipro and Prednisone by PCP. Patient stopped taking antibiotic. Patient denies any fevers or chills. Medical History: Ulcerative Colitis, Pre-Diabetes NKDA
[2022-04-04 10:09] LABS: BASOPHILS % (AUTO) 0.2 % (0.0-2.0); EOSINOPHILS # (AUTO) 0.2 K/uL (0-0.4); EOSINOPHILS % (AUTO) 1.4 % (0.0-4.0); HEMATOCRIT 30.3 % (36-52); HEMOGLOBIN 9.5 g/dL (12.0-18.0); LYMPHOCYTES # (AUTO) 3.2 K/uL (2.0-11.5); LYMPHOCYTES % (AUTO) 21.9 % (20.5-51.1); MEAN CORPUSCULAR HEMOGLOBIN 23 pg (27-31); MEAN CORPUSCULAR HGB CONC 31 g/dL (33-37); MEAN CORPUSCULAR VOLUME 71.9 fL (80-94); MONOCYTES # (AUTO) 1.4 K/uL (0.8-1.0); MONOCYTES % (AUTO) 9.9 % (1.7-9.3); NEUTROPHILS # (AUTO) 9.7 K/uL (1.8-7.7); NEUTROPHILS % (AUTO) 66.6 % (42.2-75.2); PLATELET COUNT (AUTO) 387 K/uL (140-450); RED BLOOD CELL COUNT(AUTO) 4.22 MIL/uL (4.20-6.10); RED CELL DISTRIBUTION WIDTH 17.7 % (11.6-13.7); WHITE BLOOD COUNT (AUTO) 14.6 K/uL (4.8-10.8)
[2022-04-04 10:22] LABS: ALBUMIN 2.9 g/dL (3.4-5.0); ANION GAP 11.9 (8-16); CARBON DIOXIDE 29.6 mmol/L (21-32); CREATININE 0.9 mg/dL (0.6-1.3); POTASSIUM 3.5 mmol/L (3.5-5.1); TOTAL BILIRUBIN 0.3 mg/dL (0.0-1.0)
[2022-04-04] MEDS ORDERED: FAMO-92 PO (10:25)
[2022-04-04] MEDS ORDERED: ACET-8386 PO (10:25)
[2022-04-04 11:03] VITALS: BP 138/75
--- NOTE | 2022-04-04 11:03 | NUR ---
Patient discharged with v/s stable. Written and verbal after care instructions given. Patient alert, oriented and verbalized understanding of instructions. Ambulatory with steady gait. All questions addressed prior to discharge. ID band removed. Patient advised to follow up with PMD. Rx of Hydrocodone-Acetaminophen and Pepcid given. Opportunity to ask questions provided and answered.
--- NOTE | 2022-04-04 11:26 | NUR ---
Chart checked and completed. The patient's care was reviewed and supervised by Karen Pablo RN.
== END 2022-04-04 11:03 | disposition home or self-care (01) ==
LOC: MED 07:55
DX: K85.90 Acute pancreatitis without necrosis or infection, unspecified (principal); F41.9 Anxiety disorder, unspecified; Z87.19 Personal history of other diseases of the digestive system; Z79.899 Other long term (current) drug therapy; Z79.2 Long term (current) use of antibiotics; Z79.891 Long term (current) use of opiate analgesic
CPT/HCPCS: 36415; 80053; 81002; 83690; 85025; 96372; 99283; J2270; Q0162

== ENCOUNTER 2022-04-07 21:48 | Emergency (ER) | payer MEDICAID ==
[~2022-04-07] VITALS: Ht 170.2 cm; Wt 86.2 kg
[~2022-04-07 21:48] MED LIST changes: +ACET-8386 PO
[2022-04-07 21:59] VITALS: BP 130/90
--- NOTE | 2022-04-07 22:05 | NUR ---
PT TO THE BATHROOM FOR URINE COLLECTION
--- NOTE | 2022-04-07 22:07 | NUR ---
PT TO LOBBY
--- NOTE | 2022-04-07 22:13 | NUR ---
PT TO BED 11
--- NOTE | 2022-04-07 22:30 | NUR ---
DR PABLO EXAMINING PT
[2022-04-07] MEDS ORDERED: ALUMINUM HYD/MAG/SIMETHICONE 30 ML UDC PO ONE (22:35)
[2022-04-07] MEDS ORDERED: FAMOTIDINE 20 MG/2 ML VIAL IVP ONE (22:35)
[2022-04-07] MEDS ORDERED: NACL 0.9% 1,000 ML IV ONE (22:35)
[2022-04-07] MEDS ORDERED: ONDANSETRON 4 MG/2 ML VIAL IVP ONE (22:35)
[2022-04-07 23:25] LABS: ALBUMIN 3.4 g/dL (3.4-5.0); ANION GAP 10.4 (8-16); CARBON DIOXIDE 32.4 mmol/L (21-32); CREATININE 0.9 mg/dL (0.6-1.3); POTASSIUM 3.8 mmol/L (3.5-5.1); TOTAL BILIRUBIN 0.2 mg/dL (0.0-1.0)
--- NOTE | 2022-04-07 23:40 | NUR ---
Ronel doe in [facility] - 04/08/22 at 0117 by [email or web address] PT UP AND AMBULATES TO RESTROOM WITH STEADY GAIT
--- NOTE | 2022-04-08 01:18 | NUR ---
Patient reported, abdominal pain, 12/16, Dr. Zarate notified.
[2022-04-08] MEDS ORDERED: KETOROLAC 15 MG/ML VIAL IVP ONE (01:25)
[2022-04-08 01:40] LABS: BASOPHILS # (AUTO) 0.1 K/uL (0.00-0.22); BASOPHILS % (AUTO) 0.4 % (0.0-2.0); EOSINOPHILS # (AUTO) 0.2 K/uL (0-0.4); EOSINOPHILS % (AUTO) 1.5 % (0.0-4.0); HEMATOCRIT 33.8 % (36-52); HEMOGLOBIN 10.8 g/dL (12.0-18.0); LYMPHOCYTES # (AUTO) 3.4 K/uL (2.0-11.5); LYMPHOCYTES % (AUTO) 21.9 % (20.5-51.1); MEAN CORPUSCULAR HEMOGLOBIN 23 pg (27-31); MEAN CORPUSCULAR HGB CONC 32 g/dL (33-37); MONOCYTES # (AUTO) 1.2 K/uL (0.8-1.0); NEUTROPHILS # (AUTO) 10.4 K/uL (1.8-7.7); NEUTROPHILS % (AUTO) 68.2 % (42.2-75.2); PLATELET COUNT (AUTO) 293 K/uL (140-450); RED CELL DISTRIBUTION WIDTH 17.5 % (11.6-13.7); WHITE BLOOD COUNT (AUTO) 15.3 K/uL (4.8-10.8)
[2022-04-08] MEDS ORDERED: ONDA-188 PO (02:31)
[2022-04-08] MEDS ORDERED: SUCR1TAB35 PO (02:31)
[2022-04-08 02:49] VITALS: BP 125/85
--- NOTE | 2022-04-08 02:49 | NUR ---
Patient discharged with v/s stable. Written and verbal after care instructions given and explained. Patient alert, oriented and verbalized understanding of instructions. Ambulatory with steady gait. All questions addressed prior to discharge. ID band removed. Patient advised to follow up with PMD. Rx of Zofran and Carafate given. Patient educated on indication of medication including possible reaction and side effects. Opportunity to ask questions provided and answered.
== END 2022-04-08 02:49 | disposition home or self-care (01) ==
LOC: MED 21:48
DX: K51.90 Ulcerative colitis, unspecified, without complications (principal); R11.10 Vomiting, unspecified; Z79.899 Other long term (current) drug therapy
CPT/HCPCS: 36415; 80053; 83690; 85025; 96361; 96374; 96375; 99284; J1885; J2405; J3490; J7030

== ENCOUNTER 2022-06-14 10:04 | Emergency (ER) | payer MEDICAID ==
[~2022-06-14] VITALS: Ht 170.2 cm; Wt 86.2 kg
[~2022-06-14 10:04] MED LIST changes: -ACET-8386 PO; +ACET-8905 PO; +ONDA-188 PO; +SUCR1TAB35 PO
[2022-06-14 10:05] VITALS: BP 154/69
--- NOTE | 2022-06-14 10:15 | NUR ---
PT TO BED 1
[2022-06-14] MEDS ORDERED: ALUMINUM HYD/MAG/SIMETHICONE 30 ML UDC PO ONE (10:50)
[2022-06-14] MEDS ORDERED: DICYCLOMINE 10 MG CAP PO ONE (10:50)
[2022-06-14] MEDS ORDERED: FAMOTIDINE 20 MG TAB PO ONE (10:50)
[2022-06-14 10:58] LABS: BASOPHILS # (AUTO) 0.1 K/uL (0.00-0.22); BASOPHILS % (AUTO) 0.6 % (0.0-2.0); EOSINOPHILS # (AUTO) 0.8 K/uL (0-0.4); EOSINOPHILS % (AUTO) 9.2 % (0.0-4.0); HEMATOCRIT 35.2 % (36-52); HEMOGLOBIN 10.8 g/dL (12.0-18.0); LYMPHOCYTES # (AUTO) 1.9 K/uL (2.0-11.5); LYMPHOCYTES % (AUTO) 23.2 % (20.5-51.1); MEAN CORPUSCULAR HEMOGLOBIN 20 pg (27-31); MEAN CORPUSCULAR HGB CONC 31 g/dL (33-37); MEAN CORPUSCULAR VOLUME 66.4 fL (80-94); MONOCYTES # (AUTO) 0.6 K/uL (0.8-1.0); MONOCYTES % (AUTO) 7.2 % (1.7-9.3); NEUTROPHILS # (AUTO) 4.9 K/uL (1.8-7.7); NEUTROPHILS % (AUTO) 59.8 % (42.2-75.2); PLATELET COUNT (AUTO) 297 K/uL (140-450); WHITE BLOOD COUNT (AUTO) 8.2 K/uL (4.8-10.8)
--- NOTE | 2022-06-14 11:10 | NUR ---
ASSUMED PATIENT CARE, NURSING ASSESSMENT COMPLETED.
[2022-06-14 11:21] LABS: ALBUMIN 3.7 g/dL (3.4-5.0); CARBON DIOXIDE 29.6 mmol/L (21-32); CREATININE 0.9 mg/dL (0.6-1.3); POTASSIUM 3.6 mmol/L (3.5-5.1); TOTAL BILIRUBIN 0.3 mg/dL (0.0-1.0)
[2022-06-14 11:49] LABS: APPEARANCE,URINE CLEAR (CLEAR); BILIRUBIN,URINE NEGATIVE (NEGATIVE); BLOOD, URINE NEGATIVE (NEGATIVE); COLOR,URINE YELLOW (YELLOW); LEUKOCYTE ESTERASE ,URINE NEGATIVE (NEGATIVE); NITRITE, URINE NEGATIVE (NEGATIVE); UGLUCOSE 2+ (NEGATIVE)
[2022-06-14 11:59] LABS: BARBITURATE, URINE NEGATIVE ng/ml (NEG <=200); BENZODIAZEPINE, URINE NEGATIVE ng/mL (NEG <=200); CANNABINOID, URINE NEGATIVE ng/mL (NEG <=50); COCAINE, URINE NEGATIVE ng/mL (NEG <=300); OPIATE, URINE NEGATIVE ng/mL (NEG <=2000); PHENCYCLIDINE SCREEN,URINE NEGATIVE ng/mL (NEG <=25)
[2022-06-14] MEDS ORDERED: ACET-8905 PO (13:22)
[2022-06-14] MEDS ORDERED: KETOROLAC 15 MG/ML VIAL IM ONE (13:40)
[2022-06-14] MEDS ORDERED: PRED20TA5 PO (13:50)
[2022-06-14] MEDS ORDERED: BEN10 PO (13:50)
[2022-06-14] MEDS ORDERED: FAMO-90 PO (13:50)
[2022-06-14 14:00] VITALS: BP 131/68
== END 2022-06-14 14:00 | disposition home or self-care (01) ==
LOC: MED 10:04
DX: K51.90 Ulcerative colitis, unspecified, without complications (principal); R73.9 Hyperglycemia, unspecified; Z79.899 Other long term (current) drug therapy
CPT/HCPCS: 36415; 71045; 76705; 80053; 80305; 81003; 83690; 85025; 96372; 99285; J1885; Q0092

== ENCOUNTER 2022-09-05 04:46 | Emergency (ER) | payer MEDICAID ==
[~2022-09-05] VITALS: Ht 170.2 cm; Wt 93.9 kg
[~2022-09-05 04:46] MED LIST changes: +FAMO-90 PO
[2022-09-05 04:54] VITALS: BP 130/84
--- NOTE | 2022-09-05 05:33 | NUR ---
PT BLOOD SUGAR 146 ON ACCU CHECK
[2022-09-05] MEDS ORDERED: HYDR50CA1 PO (06:21)
[2022-09-05 06:51] VITALS: BP 130/84
--- NOTE | 2022-09-05 06:51 | NUR ---
LEFT WITHOUT PAPER WORK
== END 2022-09-05 06:51 | disposition home or self-care (01) ==
LOC: MED 04:46
DX: F41.0 Panic disorder [episodic paroxysmal anxiety] (principal); E11.65 Type 2 diabetes mellitus with hyperglycemia; G47.00 Insomnia, unspecified; Z79.899 Other long term (current) drug therapy
CPT/HCPCS: 99281

== ENCOUNTER 2022-10-24 00:10 | Emergency (ER) | payer MEDICAID ==
[~2022-10-24] VITALS: Ht 170.2 cm; Wt 97.1 kg
[~2022-10-24 00:10] MED LIST changes: +HYDR50CA1 PO
[2022-10-24 00:20] VITALS: BP 122/72
--- NOTE | 2022-10-24 00:23 | NUR ---
TO LOBBY A/W BED AMBULATORY
[2022-10-24] MEDS ORDERED: ONDANSETRON 4 MG/2 ML VIAL IVP ONE (01:40)
[2022-10-24] MEDS ORDERED: MORPHINE SULFATE 4 MG/ML SYR IVP ONE ×2 (01:40→03:15)
[2022-10-24] MEDS ORDERED: DICYCLOMINE 20 MG/2 ML VIAL IM ONE ×2 (01:40→02:08)
[2022-10-24] MEDS ORDERED: NACL 0.9% 1,000 ML IV ONE (01:40)
--- NOTE | 2022-10-24 01:40 | NUR ---
pt feeling anxious. Notififed.
--- NOTE | 2022-10-24 01:48 | NUR ---
Pt felt the pain went away.
[2022-10-24] MEDS ORDERED: ONDANSETRON 4 MG TAB ONE (02:04)
[2022-10-24] MEDS ORDERED: DICYCLOMINE 10 MG CAP ONE (02:04)
[2022-10-24] MEDS ORDERED: MORPHINE SULFATE 4 MG/ML SYR ONE ×2 (02:05→03:22)
[2022-10-24] MEDS ORDERED: ONDANSETRON 4 MG/2 ML VIAL ONE (02:08)
[2022-10-24 02:16] LABS: BASOPHILS # (AUTO) 0.1 K/uL (0.00-0.22); BASOPHILS % (AUTO) 0.4 % (0.0-2.0); EOSINOPHILS # (AUTO) 0.1 K/uL (0-0.4); HEMOGLOBIN 11.1 g/dL (12.0-18.0); LYMPHOCYTES # (AUTO) 1.7 K/uL (2.0-11.5); LYMPHOCYTES % (AUTO) 13.2 % (20.5-51.1); MEAN CORPUSCULAR HEMOGLOBIN 21 pg (27-31); MEAN CORPUSCULAR HGB CONC 31 g/dL (33-37); MEAN CORPUSCULAR VOLUME 67.7 fL (80-94); MONOCYTES # (AUTO) 0.9 K/uL (0.8-1.0); MONOCYTES % (AUTO) 6.9 % (1.7-9.3); NEUTROPHILS # (AUTO) 10.3 K/uL (1.8-7.7); NEUTROPHILS % (AUTO) 78.5 % (42.2-75.2); PLATELET COUNT (AUTO) 280 K/uL (140-450); RED BLOOD CELL COUNT(AUTO) 5.31 MIL/uL (4.20-6.10); RED CELL DISTRIBUTION WIDTH 18.6 % (11.6-13.7); WHITE BLOOD COUNT (AUTO) 13.2 K/uL (4.8-10.8)
[2022-10-24 02:18] LABS: ALBUMIN 3.9 g/dL (3.4-5.0); ANION GAP 15.2 (8-16); POTASSIUM 3.2 mmol/L (3.5-5.1); TOTAL BILIRUBIN 0.5 mg/dL (0.0-1.0)
--- NOTE | 2022-10-24 03:12 | NUR ---
Pt reported pain 11/15 in abd. made aware.
[2022-10-24 03:38] LABS: BARBITURATE, URINE NEGATIVE ng/ml (NEG <=200); BENZODIAZEPINE, URINE NEGATIVE ng/mL (NEG <=200); CANNABINOID, URINE NEGATIVE ng/mL (NEG <=50); COCAINE, URINE NEGATIVE ng/mL (NEG <=300); OPIATE, URINE POSITIVE ng/mL (NEG <=2000); PHENCYCLIDINE SCREEN,URINE NEGATIVE ng/mL (NEG <=25)
--- NOTE | 2022-10-24 03:45 | NUR ---
pt is resting, vital sign within normal limits.
[2022-10-24] MEDS ORDERED: BEN10 PO (04:28)
[2022-10-24] MEDS ORDERED: HYDR-5191 PO (05:56)
[2022-10-24 06:08] VITALS: BP 119/58
--- NOTE | 2022-10-24 06:10 | NUR ---
Patient discharged with v/s stable. Written and verbal after care instructions given and explained. Patient alert, oriented and verbalized understanding of instructions. Ambulatory with steady gait. All questions addressed prior to discharge. ID band removed. Patient advised to follow up with PMD. Rx of dicyclomide hydrocloride given. Patient educated on indication of medication including possible reaction and side effects. Opportunity to ask questions provided and answered.
== END 2022-10-24 06:10 | disposition home or self-care (01) ==
LOC: MED 00:10
DX: K51.90 Ulcerative colitis, unspecified, without complications (principal); M54.50 Low back pain, unspecified; E11.9 Type 2 diabetes mellitus without complications; Z79.899 Other long term (current) drug therapy; Z79.4 Long term (current) use of insulin
CPT/HCPCS: 36415; 80053; 80305; 83690; 85025; 96365; 96367; 96375; 99284; J0500; J2270; J2405; Q0162

== ENCOUNTER 2023-05-11 18:48 | Emergency (ER) | payer MEDICAID ==
[~2023-05-11] VITALS: Ht 175.3 cm; Wt 90.7 kg
[2023-05-11 19:18] VITALS: BP 127/81; PULSE 75; RESP 18; TEMP 98; O2SAT 98
[2023-05-11] MEDS ORDERED: MESA0.37 PO (22:42)
[2023-05-11 22:46] VITALS: BP 125/81; PULSE 75; RESP 18; TEMP 98; O2SAT 98
== END 2023-05-11 22:46 | disposition home or self-care (01) ==
LOC: MED 18:48
DX: K51.90 Ulcerative colitis, unspecified, without complications (principal); Z76.0 Encounter for issue of repeat prescription; E11.9 Type 2 diabetes mellitus without complications; Z79.899 Other long term (current) drug therapy; Z79.2 Long term (current) use of antibiotics
CPT/HCPCS: 99281

== ENCOUNTER 2024-01-30 18:14 | Emergency (ER) | payer MEDICAID ==
[~2024-01-30] VITALS: Ht 172.7 cm; Wt 95.3 kg
[~2024-01-30 18:14] MED LIST changes: +MESA0.37 PO; +SUCR-3 PO; -SUCR1TAB35 PO
[2024-01-30 18:52] VITALS: BP 152/83; PULSE 76; RESP 15; TEMP 98.7; O2SAT 98
[2024-01-30 19:50] VITALS: BP 126/71; PULSE 78; RESP 18; TEMP 98.7; O2SAT 98
[2024-01-30 20:36] LABS: BASOPHILS % (AUTO) 0.3 % (0.0-2.0); EOSINOPHILS # (AUTO) 0.6 K/uL (0-0.4); EOSINOPHILS % (AUTO) 5.1 % (0.0-4.0); HEMATOCRIT 39.7 % (36-52); HEMOGLOBIN 12.7 g/dL (12.0-18.0); LYMPHOCYTES % (AUTO) 16.7 % (20.5-51.1); MEAN CORPUSCULAR HEMOGLOBIN 24 pg (27-31); MEAN CORPUSCULAR HGB CONC 32 g/dL (33-37); MEAN CORPUSCULAR VOLUME 76.3 fL (80-94); MONOCYTES # (AUTO) 1.1 K/uL (0.8-1.0); MONOCYTES % (AUTO) 9.5 % (1.7-9.3); NEUTROPHILS # (AUTO) 8.2 K/uL (1.8-7.7); NEUTROPHILS % (AUTO) 68.4 % (42.2-75.2); PLATELET COUNT (AUTO) 267 K/uL (140-450); RED BLOOD CELL COUNT(AUTO) 5.21 MIL/uL (4.20-6.10); RED CELL DISTRIBUTION WIDTH 17.5 % (11.6-13.7)
[2024-01-30 21:01] LABS: ALBUMIN 3.7 g/dL (3.4-5.0); ANION GAP 13.2 (8-16); CARBON DIOXIDE 27.3 mmol/L (21-32); POTASSIUM 3.5 mmol/L (3.5-5.1); TOTAL BILIRUBIN 0.2 mg/dL (0.0-1.0); TOTAL PROTEIN, SERUM 7.7 g/dL (6.4-8.2)
[2024-01-30] MEDS ORDERED: PRED20TA5 PO (21:54)
[2024-01-30] MEDS ORDERED: FAMO-90 PO (21:54)
== END 2024-01-30 22:03 | disposition home or self-care (01) ==
LOC: MED 18:14
DX: K92.1 Melena (principal); E11.9 Type 2 diabetes mellitus without complications; Z79.899 Other long term (current) drug therapy
CPT/HCPCS: 36415; 80053; 83690; 85025; 99283